=== PATIENT | male | born 1950 | race Caucasian/White ===

== ENCOUNTER 2020-06-05 13:38 | Emergency (ER) | payer MEDICARE ==
--- NOTE | 2020-06-05 14:33 | EDM.PDOC ---
ED HPI GENERAL MEDICAL PROBLEM - General Chief Complaint: ENT Problem Stated Complaint: NOSEBLEED Time Seen by Provider: 06/05/20 14:30 Source of Information: Reports: Patient History Limitations: Reports: No Limitations - History of Present Illness INITIAL COMMENTS - FREE TEXT/NARRATIVE: 59-year-old male presents to the ED with acute left-sided nasal hemorrhage starting about 1100 hrs. this morning. Patient has a previous fractured nose and states that he has been getting nosebleeds once or twice a year since fourth grade. 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 He was therefore placed back on Plavix prophylactically to prevent any further thrombosis. He states this nosebleed started spontaneously today without any nasal trauma or recent infections. He has placed a "nasal cease" back into the left naris for the fourth time today. He still feels it actively bleeding both posteriorly and the pack currently is soaked with blood. Ports not responding to his home treatment which usually has worked well for him. Onset: Today, Sudden Onset Date: 06/05/20 Duration: Hour(s):, Constant Location: Reports: Face (Active left-sided epistaxis) Quality: Reports: Other Severity: Moderate (No pain.) Improves with: Reports: Other (He has slowed the bleeding with "nasal cease" packs that he uses in the past for nosebleeds.) Worsens with: Reports: None Context: Reports: Other. Denies: Activity, Exercise, Lifting, Sick Contact, Trauma Associated Symptoms: Reports: No Other Symptoms (Continues development of left- sided epistaxis today without trauma) Treatments CHECKER IN: Reports: Other (see below) (none) - Related Data Allergies Allergy/AdvReac Type Severity Reaction Status Date / Time No Known Allergies Allergy Verified 06/05/20 13:55 Home Meds: Home Meds Albuterol [Ventolin HFA] 2 puff INH Q4H PRN 06/05/20 [History] Bacitracin Zinc/Polymyxin B [Polysporin Ointment] 28.3 gm TP DAILY #1 tube 06/05/20 [Rx] Benzonatate 200 mg PO TID PRN 06/05/20 [History] Clopidogrel Bisulfate [Plavix] 75 mg PO DAILY 06/05/20 [History] Codeine/Promethazine HCl [Promethazine-Codeine Syrup] 06/05/20 [History] Furosemide [Lasix] 20 mg PO BID 06/05/20 [History] Hydrocodone/Acetaminophen [Hydrocodone-Acetamin 10-325 mg] 1 tab PO Q6H PRN 06/05/20 [History] Incruse 1 puff INH DAILY 06/05/20 [History] Latanoprost/Pf [Latanoprost 0.005% Eye Drop] 1 drop TOP BEDTIME 06/05/20 [History] Metoprolol Tartrate 25 mg PO BID 06/05/20 [History] Potassium Chloride 10 meq PO BID 06/05/20 [History] Tamsulosin [Flomax] 0.4 mg PO DAILY 06/05/20 [History] Tiotropium [place] [Spiriva Respimat] 2 puff INH DAILY 06/05/20 [History] atorvaSTATin Calcium [Lipitor] 40 mg PO BEDTIME 06/05/20 [History] Past Medical History HEENT History: Reports: Impaired Vision Other HEENT History: reading glasses Cardiovascular History: Reports: Bypass Other Cardiovascular History: 3 vessel--bypass carried out using both internal mammary arteries for grafting in 2009. No previous CO. He reports to the vessels had 85% obstruction and one vessel had 95% occlusion. Does not have any coronary artery stents. Respiratory History: Reports: Other (See Below) (Right thoracotomy about approximately [address] 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 This occurred prior to his open heart surgery. He developed apparently 2 thromboses to his cerebellum. He was therefore placed on Plavix 75 mg a day to prevent further thrombosis after the open heart surgery was performed in 2009. Oncologic (Cancer) History: Reports: Lung Other Oncologic History: right mid lobe-removed tumor was 6mm and increased to 14 mm; done last month apr 2020--she had a right-sided thoracotomy carried out by Dr. Maradiaga cardiovascular surgeon at [facility] in [place]. Tumor was apparently a neuroendocrine carcinoma. - Past Surgical History HEENT Surgical History: Reports: Cataract Surgery Social & Family History - Tobacco Use Tobacco Use Status *Q: Never Tobacco User - Caffeine Use Caffeine Use: Reports: Soda, Tea - Recreational Drug Use Recreational Drug Use: No - Living Situation & Occupation Living situation: Reports: Occupation: Retired ED ROS ENT - Review of Systems Review Of Systems: See Below Constitutional: Reports: Fatigue (Having from right-sided thoracotomy. Disrupted sleep pattern having to sleep in the easy chair quite often.). Denies: Fever, Chills, Malaise, Weakness HEENT: Reports: Nosebleed ([facility] to the ED today for acute left-sided epistaxis.) Respiratory: Reports: Shortness of Breath, Cough (Mild nonproductive cough.). Denies: Wheezing, Pleuritic Chest Pain (Dyspnea due to right-sided chest pain from thoracotomy done a month ago) Cardiovascular: Reports: Chest Pain (At site of recent right-sided thoracotomy w ithin the last month. Previous well-healed midline sternotomy incision), Blood Pressure Problem, Dyspnea on Exertion. Denies: Claudication, Edema, Lightheadedness, Orthopnea Endocrine: Reports: Fatigue GI/Abdominal: Reports: No Symptoms, Constipation (Constipation issues since right-sided thoracotomy believed to be due to pain meds.) : Reports: Frequency (Urinary frequency with nocturia x2. Known BPH.) Musculoskeletal: Reports: Neck Pain, Back Pain Skin: Reports: No Symptoms Neurological: Reports: No Symptoms Psychiatric: Reports: No Symptoms Hematologic/Lymphatic: Reports: No Symptoms Immunologic: Reports: No Symptoms ED EXAM, ENT - Physical Exam Exam: See Below Exam Limited By: No Limitations General Appearance: Alert, WD/WN, No Apparent Distress, Other (Temperature is 36.4. Heart rate 82 and sinus respiratory is 24 with O2 sats of 98% room air BP 08/30/1963.) Eye Exam: Bilateral Eye: Normal Inspection (No blepharal pallor or jaundice.), PERRL Nose: Other (Minimal proud vessels on the surface of the mid anterior nasal septum on the right side. Patient has a nasal cease plugged left nares which is completely soaked with blood. Upon removal of the packing he was identified to have active bleeding from the left anterior nasal septum mid to posteriorly. No acute source for the bleeding identified that could be amenable to cauterization with silver nitrate.) Mouth/Throat: Other (Clot appreciated posterior left nasopharynx on oral pharyngeal exam. Cleared with blowing his nose.) Head: Atraumatic, Normocephalic Neck: Normal Inspection, Supple, Limited Range of Motion (Patient has decreased lateral range of motion due to cervical neck pain.), Tender Lateral. No: Lymphadenopathy (L), Lymphadenopathy (R) Respiratory/Chest: Respiratory Distress, Other (Tachypnea. She has a healing right sided thoracotomy wound mid right thorax. Apparently underwent thoracotomy for removal of a neuroendocrine carcinoma in the middle lobe of his right lung approximately 1 month ago in [facility]) Cardiovascular: Regular Rate, Rhythm, No Edema, No Gallop, No JVD, Other. No: Normal Peripheral Pulses GI/Abdominal: Non-Tender ( Moderate obesity.), No Organomegaly, Distended, Other (Abdomen is mildly distended tympany to percussion. Abdomen is firm to palpation.) Back: Normal Inspection, Full Range of Motion. No: CVA Tenderness (L), CVA Tenderness (R) Extremities: Pedal Edema (Mild at the ankles.) Neurological: Alert, Oriented, CN II-XII Intact, Normal Cognition Psychiatric: Normal Affect, Normal Mood Skin: Warm, Dry, Intact, Normal Color, No Rash ED ENT PROCEDURES - Epistaxis Procedure Indication: Epistaxis Recent anticoagulants/antiplatlets: Yes (Is on Plavix 75 mg daily.) Uncontrolled HTN: No Recent septal/nasal surgery: No Site of bleeding: Left Nare, Other Clearing of clots: Patient Blew Nose (Able to identify source of bleeding.) Ice pack to area: No Anterior Packing: Petrolatum Guaze Strip (Left packing placed as far back in the nose as possible.) Course - Vital Signs Last Recorded V/S: Last Vital Signs Temp 36.4 C 06/05/20 13:52 Pulse 82 06/05/20 13:52 Resp 24 H 06/05/20 13:52 BP 122/64 06/05/20 13:52 Pulse Ox 98 06/05/20 13:52 - Radiology Interpretation Free Text/Narrative:: 69-year-old male presents to the ED for evaluation of acute left-sided nosebleed. 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 Patient recently was off his Plavix to allow [facility] for removal of a neuroendocrine carcinoma right middle lobe of lung. It is felt that the tumor has been removed completely and he will not require any further oncology intervention. Patient denies any trauma but reports recurrent nosebleeds usually once or twice per year since being in the fourth grade. Previous trauma to the nose at that time when he struck a swing pole with loss of consciousness and fractured nasal bone. He currently has a nasal cease packing in the left nares and bleeding at this time appears to be slowed or stopped. He has a mild clot in the left posterior nasopharynx. I am going to adopt a [id number] approach and come back and view him in 20 minutes or so. - Re-Assessments/Exams Free Text/Narrative Re-Assessment/Exam: 06/05/20 15:45: I have completed packing the left nares with Vaseline Tubegauze. Bleeding from the left naris was identifiable on examination as to source. Bleeding appeared to be coming from the mid to posterior left nasal septal area. Once he blew his nose and cleared the clot the clot in the left posterior oropharynx disappeared as well. I will review him in 15 minutes to see if there is any further bleeding. 06/05/20 16:03: No further bleeding in the posterior left oropharynx. The nasal pack is dry at this time. The therefore will be discharged to home. He is to leave the packing in place for 48 hours and he may remove it on his own at home. He will return if there is any further bleeding. He will then place Polysporin ointment into each side of his nose with the aid of an Q-tip every night at bedtime for the rest of the winter months. He is already dug out his humidifier in place and in his sleeping quarters. Departure - Departure Time of Disposition: 16:07 Disposition: Home, Self-Care 01 Condition: Fair Clinical Impression: Left-sided nosebleed - Discharge Information *PRESCRIPTION DRUG MONITORING PROGRAM REVIEWED*: Not Applicable *COPY OF PRESCRIPTION DRUG MONITORING REPORT IN PATIENT [place]: Not Applicable Prescriptions: Bacitracin Zinc/Polymyxin B [Polysporin Ointment] 28.3 gm TP DAILY #1 tube Referrals: Gregorio Cunningham MD [Primary Care Provider] - Forms: ED Department Discharge Additional Instructions: Evaluation in the emergency room today in regards to development of acute left- sided nosebleed at approximate 1100 hrs. this morning. As you indicated you have been having recurrent nosebleeds off and on since you were in grade school after traumatic injury to your nose. Currently on Plavix 75 mg once daily to thin your blood to prevent clotting due to previous cerebrovascular accident(stroke) following the cerebellum which is interrupted your balance mechanism. Recent right lung surgery for removal of a neuroendocrine cancerous tumor from the middle lobe of your right lung. Examination revealed you had a nasal cease plug in the left naris which has become soaked with blood. You indicate this is the fourth when you have placed so far today. At the time of examination bleeding seems to have slowed. There was a small clot in the left posterior nasopharynx on exam. With nose blowing you were able to remove the clot from the left side of the nose. I could not identify a single area that was actively bleeding. The bleeding seems to be coming from the mid to posterior left septum. Packing of the left nose was done with Vaseline impregnated tube gauze. Packing is to remain in place ideally for about 48 hours. You may then remove it at home gently. After this suggest use of Polysporin ointment on the end of acute bit tip placed into the nose on each side every night at bedtime for most of the winter. Usually after the packing comes out I advised every night at bedtime for 1 week and then at least twice weekly usually Wednesday and Wednesday nights. You appreciated increased in medication your sleeping quarters may also prevent further nosebleeds. Return of course to the ED if you have any further active bleeding. Sepsis Event Note (ED) - Evaluation Sepsis Screening Result: No Definite Risk - Focused Exam Vital Signs: Vital Signs Temp Pulse Resp BP Pulse Ox 06/05/20 13:52 36.4 C 82 24 H 122/64 98
== END 2020-06-05 16:25 | disposition home or self-care (01) ==
LOC: JD.ED 13:38
DX: R04.0 Epistaxis (principal); Z79.02 Long term (current) use of antithrombotics/antiplatelets; Z79.899 Other long term (current) drug therapy
CPT/HCPCS: 99283